=== PATIENT | female | born 1930 | race Caucasian/White ===

== ENCOUNTER → 2017-07-08 | Outpatient (CLI) | payer OTHER ==
[2015-09-09 11:00] VITALS: BP 132/62
[~2017-07-08] MED LIST: ACET-1570 PO; ASPI-482 PO; ATEN50TA PO; DIPH25CA58 PO; HYDR12.53 PO; LEVO88TA4 PO; NITR0.4T SL
--- NOTE | 2017-07-08 16:51 | KCIC ---
Thyroid ultrasound dated 07/08/2017. No comparison available. Clinical indication: Lump in neck and throat area. History of prior thyroid surgery. FINDINGS: Right thyroid lobe measures 1.9 x 0.8 x 1.1 cm. Left lobe measures 2.2 x 1.0 x 1.1 cm. No cystic or solid mass. Thyroid isthmus is thin measuring 1 mm thickness. There is a large tortuous vascular structure correlates with palpable lump anteriorly near the midline that shows prominent color Doppler flow. Compression imaging and waveform analysis was not performed, however this likely represents a prominent vein. IMPRESSION: 1. The thyroid gland is somewhat hypoplastic but otherwise normal in appearance. 2. Palpable lump correlates with a prominent vascular structure anteriorly near the midline, likely a prominent vein. Recommend physical exam correlation. Electronically signed by: Saúl Fam MD (07/08/2017 4:48 PM) [id number]
== END | disposition home or self-care (01) ==
LOC: KCIC US 15:39
PROVIDERS: ATTEND Physician Assistant
DX: R22.1 Localized swelling, mass and lump, neck (principal)
CPT/HCPCS: 76536